=== PATIENT | female | born 1975 | race Caucasian/White ===

== ENCOUNTER 2017-07-27 14:56 | Outpatient (CLI) | payer OTHER | END 2017-07-27 15:11 | disposition home or self-care (01) | LOC: MAMO-SONO 14:56 | DX: Z12.31 Encounter for screening mammogram for malignant neoplasm of breast (principal); N60.11 Diffuse cystic mastopathy of right breast; N60.12 Diffuse cystic mastopathy of left breast; R10.2 Pelvic and perineal pain ==

== ENCOUNTER 2024-12-22 09:34 | Outpatient (CLI) | payer OTHER | END 2024-12-22 09:39 | disposition home or self-care (01) | LOC: SONOGRAMA 09:34 | PROVIDERS: ATTEND Obstetrics & Gynecology | DX: N84.0 Polyp of corpus uteri (principal) ==